=== PATIENT | male | born 1955 | race American Indian/Alaskan Native ===

== ENCOUNTER 2017-01-15 00:10 | Emergency (ER) | payer MEDICARE ==
[2017-01-15 00:40] VITALS: BP 194/130
[2017-01-15 01:09] LABS: Eosinophils % (Auto) 3.3 % (0.0-4.3); Hemoglobin 14.3 gm/dl (11.8-15.2); Mean Corpuscular HGB Conc 35 % (32-34); Mean Corpuscular Hemoglobin 31 pg (28-32); Mean Corpuscular Volume 89 fl (84-94); Platelet Count 253 K/mm3 (140-440); Red Cell Distribution Width 13.6 % (13.2-15.2); White Blood Count 8.8 K/mm3 (4.5-11.0)
[2017-01-15 01:15] LABS: Albumin 4.2 g/dL (3.9-5); Albumin/Globulin Ratio 1.4 %; BUN/Creatinine Ratio 17.64; Bilirubin,Total 0.7 mg/dL (0.1-1.2); Calcium 9.3 mg/dL (8.4-10.2); Chloride 99.3 mmol/L (98-107); Potassium 3.9 mmol/L (3.6-5.0); Total Protein 7.3 g/dL (6.3-8.2)
[2017-01-15 01:39] LABS: Bilirubin,Urine NEG (Negative); Blood,Urine NEG (Negative); Ketones,Urine NEG (Negative); Leukocyte Esterase,Urine NEG (Negative); Mucus,Urine FEW /HPF; Nitrite,Urine NEG (Negative); RBC,Urine < 1.0 /HPF (0.0-6.0)
[2017-01-15] MEDS ORDERED: PERCOCET 5/325 PO ONE (02:09)
--- NOTE | 2017-01-15 02:09 | Emergency Department Report ---
ED Back Pain/Injury HPI - General Chief Complaint: Back Pain/Injury Stated Complaint: BACK PAIN/CHILLS Time Seen by Provider: 01/15/17 02:00 Source: patient Limitations: No Limitations - History of Present Illness Initial Comments: This is a 61-year-old woman with a long-standing history of low back pain. He has had laminectomy done prior. He indicates over the past 2 weeks she's had increased exacerbation of his lower back pain. He denies any specific trauma. He denies any falls. He denies any bowel or bladder difficulties. He denies any anesthesia around the groin area. He states that he does get radiation of his pain down posterior aspect of both legs. He does have an appointment on Sunday to have radioablation performed he comes in today for pain management. Patient states he has been on narcotic medications in the past. He is not currently taking any narcotic medications for his pain. He has been on muscle relaxants as well. He states both of these are helpful for him in the past. - Related Data Home Medications Medication Instructions Recorded Confirmed Last Taken Aspirin [Aspirin TAB] 325 mg PO QDAY 07/04/13 05/30/16 05/28/16 325mg Lisinopril [Zestril TAB] 40 mg PO QDAY 07/04/13 05/30/16 05/29/16 40mg Amlodipine Besylate [Norvasc] 10 mg PO DAILY 09/22/14 05/30/16 05/29/16 10mg Hydralazine HCl [Apresoline TAB] 100 mg PO TID 09/22/14 05/30/16 05/29/16 100mg cloNIDine [Catapres] 0.3 mg PO TID 09/22/14 05/30/16 05/29/16 03mg Carvedilol [Coreg] 25 mg PO BID 05/29/16 05/30/16 05/29/16 25mg Previous Rx's Medication Instructions Recorded Last Taken Type Furosemide [Lasix TAB] 40 mg PO QDAY #60 tablet 05/19/16 05/29/16 Rx 40mg oxyCODONE [Roxicodone] 5 mg PO Q6HR PRN #15 tablet 05/19/16 05/29/16 Rx 5mg HYDROcodone/APAP 10-325 [[place] 1 each PO Q6HR PRN #45 tablet 05/29/16 Unknown Rx ] Ondansetron [Zofran Odt] 4 mg PO QID PRN #20 tab.rapdis 05/30/16 Unknown Rx traMADol [Ultram 50 MG tab] 50 mg PO Q4HR PRN #30 tablet 01/15/17 Unknown Rx Allergies Allergy/AdvReac Type Severity Reaction Status Date / Time No Known Allergies Allergy Unverified 07/04/13 20:34 ED Review of Systems ROS: Stated complaint: BACK PAIN/CHILLS Other details as noted in HPI Comment: All other systems reviewed and negative Constitutional: denies: chills, fever Eyes: denies: eye pain, eye discharge, vision change ENT: denies: ear pain, throat pain Respiratory: denies: cough, shortness of breath, wheezing Cardiovascular: denies: chest pain, palpitations Endocrine: no symptoms reported Gastrointestinal: denies: abdominal pain, nausea, diarrhea Genitourinary: denies: urgency, dysuria Musculoskeletal: back pain. denies: joint swelling, arthralgia Skin: denies: rash, lesions Neurological: denies: headache, weakness, paresthesias Psychiatric: denies: anxiety, depression Hematological/Lymphatic: denies: easy bleeding, easy bruising ED Past Medical Hx - Past Medical History Previous Medical History?: Yes Hx Hypertension: Yes Hx CVA: Yes Hx Heart Attack/AMI: No Hx Congestive Heart Failure: Yes Hx Diabetes: No Hx Deep Vein Thrombosis: No Hx Asthma: No Hx COPD: No Hx HIV: No Additional medical history: neuropathy. Review of previous laboratory results shows chronic renal insufficiency - Surgical History Past Surgical History?: Yes Hx Coronary Stent: No Hx Open Heart Surgery: No Hx Pacemaker: No Hx Internal Defibrillator: No Hx Cholecystectomy: No Hx Appendectomy: No Hx Breast Surgery: No Additional Surgical History: left inguinal hernia repair x 2 - Social History Smoking Status: Former Smoker Substance Use Type: Alcohol - Medications Home Medications: Home Medications Medication Instructions Recorded Confirmed Last Taken Type Aspirin [Aspirin TAB] 325 mg PO QDAY 07/04/13 05/30/16 05/28/16 History 325mg Lisinopril [Zestril TAB] 40 mg PO QDAY 07/04/13 05/30/16 05/29/16 History 40mg Amlodipine Besylate [Norvasc] 10 mg PO DAILY 0105/30/16 05/29/16 History 10mg Hydralazine HCl [Apresoline TAB] 100 mg PO TID 09/22/14 05/30/16 05/29/16 History 100mg cloNIDine [Catapres] 0.3 mg PO TID 09/22/14 05/30/16 05/29/16 History 03mg Furosemide [Lasix TAB] 40 mg PO QDAY #60 tablet 05/19/16 05/30/16 05/29/16 Rx 40mg oxyCODONE [Roxicodone] 5 mg PO Q6HR PRN #15 tablet 05/19/16 05/30/16 05/29/16 Rx 5mg Carvedilol [Coreg] 25 mg PO BID 05/29/16 05/30/16 05/29/16 History 25mg HYDROcodone/APAP 10-325 [[place] 1 each PO Q6HR PRN #45 tablet 05/29/16 05/30/16 Unknown Rx 10/325] Ondansetron [Zofran Odt] 4 mg PO QID PRN #20 tab.rapdis 05/30/16 Unknown Rx traMADol [Ultram 50 MG tab] 50 mg PO Q4HR PRN #30 tablet 01/15/17 Unknown Rx ED Physical Exam - General Limitations: No Limitations General appearance: alert, in distress (mild) - Head Head exam: Present: atraumatic, normocephalic - Eye Eye exam: Present: normal appearance, EOMI. Absent: scleral icterus - ENT ENT exam: Present: normal exam, normal orophraynx, mucous membranes moist - Neck Neck exam: Present: normal inspection - Respiratory Respiratory exam: Present: normal lung sounds bilaterally. Absent: respiratory distress, wheezes, rales - Cardiovascular Cardiovascular Exam: Present: regular rate, normal rhythm. Absent: systolic murmur, diastolic murmur, rubs, gallop - GI/Abdominal GI/Abdominal exam: Present: soft, normal bowel sounds. Absent: tenderness, guarding, pulsatile mass - Rectal Rectal exam: Present: deferred - Extremities Exam Extremities exam: Present: normal inspection, full ROM. Absent: tenderness, pedal edema, calf tenderness - Back Exam Back exam: Present: normal inspection, tenderness (mild paralumbar region bilaterally. No spasming noted. No midline bony step-off is appreciated.) - Neurological Exam Neurological exam: Present: alert, oriented X3, normal gait, other (normal gait noted. Negative straight leg raise bilaterally. Downward Babinski bilaterally. Able to walk on heels and toes with minimal difficulty.) - Psychiatric Psychiatric exam: Present: normal affect, normal mood - Skin Skin exam: Present: warm, dry, intact, normal color. Absent: rash ED Course Vital Signs 01/15/17 01/15/17 00:34 02:27 Temperature 98.1 F Pulse Rate 84 Respiratory 18 20 Rate Blood Pressure 194/130 O2 Sat by Pulse 97 Oximetry - Reevaluation(s) Reevaluation #1: 01/15/17 19:22 Unremarkable presentation in general. I do not have any suspicion for cord compression at this time. There is no new neurologic findings nor new injury. I do not feel any imaging is necessary at this time. Patient has been given pain medication here. I did strongly encourage him to continue with his plan for radioablation on Sunday. He is to this. He does agree to return if he has any acute worsening or any neurologic findings as well. ED Medical Decision Making - Lab Data Result diagrams: 01/15/17 00:43 01/15/17 00:43 Critical care attestation.: If time is entered above; I have spent that time in minutes in the direct care of this critically ill patient, excluding procedure time. ED Disposition Clinical Impression: Renal insufficiency, mild Sciatica Qualifiers: Laterality: bilateral Qualified Code(s): M54.31 - Sciatica, right side Hypertension Qualifiers: Hypertension type: essential hypertension Qualified Code(s): I10 - Essential ( primary) hypertension Disposition: DISCHARGED TO HOME OR SELFCARE Is pt being admited?: No Does the pt Need Aspirin: No Condition: Stable Instructions: Hypertension (ED) Additional Instructions: Limit her activities. Follow-up on Sunday as planned for radioablation. Take all and/or aspirin as needed for discomfort. Consider gentle massage as well. Prescriptions: traMADol [Ultram 50 MG tab] 50 mg PO Q4HR PRN #30 tablet PRN Reason: Pain Referrals: ZAKIYA DSOUZA MD [Primary Care Provider] - 3-5 Days Time of Disposition: 02:11
== END 2017-01-15 02:33 | disposition home or self-care (01) ==
LOC: ED 00:10
DX: M54.31 Sciatica, right side (principal); N28.9 Disorder of kidney and ureter, unspecified; I10 Essential (primary) hypertension; I50.9 Heart failure, unspecified; Z87.891 Personal history of nicotine dependence
CPT/HCPCS: 36415; 80053; 81001; 83690; 85025; 99283

== ENCOUNTER 2017-09-20 07:18 | Emergency (ER) | payer MEDICARE ==
[2017-09-20 07:49] VITALS: BP 211/127
[2017-09-20] MEDS ORDERED: ASPIRIN PO ONE (07:51)
[2017-09-20 08:57] LABS: Basophils # (Auto) 0.1 K/mm3 (0.0-0.1); Basophils % (Auto) 0.5 % (0.0-1.8); Eosinophils # (Auto) 0.1 K/mm3 (0.0-0.4); Eosinophils % (Auto) 0.6 % (0.0-4.3); Hematocrit 44.8 % (35.5-45.6); Lymphocytes # (Auto) 0.8 K/mm3 (1.2-5.4); Lymphocytes % (Auto) 5.7 % (13.4-35.0); Mean Corpuscular HGB Conc 33 % (32-34); Mean Corpuscular Hemoglobin 30 pg (28-32); Mean Corpuscular Volume 91 fl (84-94); Monocytes # (Auto) 0.8 K/mm3 (0.0-0.8); Platelet Count 233 K/mm3 (140-440); Red Blood Count 4.94 M/mm3 (3.65-5.03); Red Cell Distribution Width 14.1 % (13.2-15.2)
[2017-09-20 09:19] LABS: BUN/Creatinine Ratio 18; Blood Urea Nitrogen 31 mg/dL (9-20); Calcium 9.1 mg/dL (8.4-10.2); Hemolysis Index 42
--- NOTE | 2017-09-20 09:34 | XRay Report ---
Chest 2 views. History: Burning chest pain. Findings: The heart is mildly enlarged. There is suboptimal inspiration. The lungs are clear. No pleural fluid is seen. Impression: Cardiomegaly with no acute findings.
== END 2017-09-20 10:49 | disposition left against medical advice (07) ==
LOC: ED 07:18
DX: R07.9 Chest pain, unspecified (principal); Z53.21 Procedure and treatment not carried out due to patient leaving prior to being seen by health care provider
CPT/HCPCS: 36415; 71046; 80048; 84484; 85025; 87400; 93005; 93010

== ENCOUNTER 2018-06-03 23:33 | Emergency (ER) | payer MEDICARE ==
[2018-06-04 00:41] VITALS: BP 152/95
[2018-06-04] MEDS ORDERED: ASPIRIN PO ONE (00:41)
[2018-06-04 01:18] LABS: Basophils # (Auto) 0.1 K/mm3 (0.0-0.1); Basophils % (Auto) 1.4 % (0.0-1.8); Eosinophils # (Auto) 0.2 K/mm3 (0.0-0.4); Eosinophils % (Auto) 3.5 % (0.0-4.3); Hematocrit 39.4 % (35.5-45.6); Hemoglobin 13.4 gm/dl (11.8-15.2); Lymphocytes # (Auto) 1.2 K/mm3 (1.2-5.4); Lymphocytes % (Auto) 16.7 % (13.4-35.0); Mean Corpuscular HGB Conc 34 % (32-34); Mean Corpuscular Hemoglobin 31 pg (28-32); Mean Corpuscular Volume 90 fl (84-94); Monocytes # (Auto) 0.5 K/mm3 (0.0-0.8); Monocytes % (Auto) 7.3 % (0.0-7.3); Platelet Count 245 K/mm3 (140-440); Red Blood Count 4.37 M/mm3 (3.65-5.03); Red Cell Distribution Width 14.6 % (13.2-15.2)
[2018-06-04 01:40] LABS: BUN/Creatinine Ratio 20; Blood Urea Nitrogen 47 mg/dL (9-20); Calcium 9.2 mg/dL (8.4-10.2); Hemolysis Index 24
== END 2018-06-04 04:50 | disposition left against medical advice (07) ==
LOC: ED 23:33
DX: R07.89 Other chest pain (principal); Z53.21 Procedure and treatment not carried out due to patient leaving prior to being seen by health care provider
CPT/HCPCS: 36415; 80048; 84484; 85025; 93005; 93010